=== PATIENT | male | born 1940 | race Hispanic/Latino ===

== ENCOUNTER → 2018-01-17 | Outpatient (CLI) | payer MEDICARE ==
[~2018-01-17] MED LIST: HONEY 1 APPL/ML TUBE TP ONE; LIDOCAINE HCL 4% LTA SOL 4 ML VIAL TP ONE
[2018-01-17 16:06] VITALS: BP 161/73
== END | disposition home or self-care (01) ==
LOC: WHH 14:30
PROVIDERS: ATTEND Family Medicine
DX: T23.021D Burn of unspecified degree of single right finger (nail) except thumb, subsequent encounter (principal); T23.002D Burn of unspecified degree of left hand, unspecified site, subsequent encounter; T31.0 Burns involving less than 10% of body surface; E78.5 Hyperlipidemia, unspecified; E11.22 Type 2 diabetes mellitus with diabetic chronic kidney disease; N18.9 Chronic kidney disease, unspecified; M19.90 Unspecified osteoarthritis, unspecified site; E11.39 Type 2 diabetes mellitus with other diabetic ophthalmic complication; H42 Glaucoma in diseases classified elsewhere; X08.8XXD Exposure to other specified smoke, fire and flames, subsequent encounter
CPT/HCPCS: 11042; A4450; A6213; G0463

== ENCOUNTER 2018-01-31 14:00 | Outpatient (CLI) | payer MEDICARE ==
[2018-01-31 15:37] VITALS: BP 132/64
== END 2018-01-31 16:00 | disposition home or self-care (01) ==
LOC: WHH 14:00
PROVIDERS: ATTEND Family Medicine
DX: T23.021D Burn of unspecified degree of single right finger (nail) except thumb, subsequent encounter (principal); T23.002D Burn of unspecified degree of left hand, unspecified site, subsequent encounter; T31.0 Burns involving less than 10% of body surface; E78.5 Hyperlipidemia, unspecified; E11.22 Type 2 diabetes mellitus with diabetic chronic kidney disease; N18.9 Chronic kidney disease, unspecified; M19.90 Unspecified osteoarthritis, unspecified site; E11.39 Type 2 diabetes mellitus with other diabetic ophthalmic complication; H42 Glaucoma in diseases classified elsewhere; X08.8XXD Exposure to other specified smoke, fire and flames, subsequent encounter
CPT/HCPCS: G0463